=== PATIENT | male | born 1990 | race Two or more races ===

== ENCOUNTER 2020-12-13 21:07 | Emergency (ER) | payer SELFPAY ==
[~2020-12-13] VITALS: Ht 170.2 cm; Wt 77.1 kg
[2020-12-14 01:02] VITALS: BP 120/72
== END 2020-12-14 01:16 | disposition home or self-care (01) ==
LOC: EDBD 21:07 → ER 21:07
DX: S29.012A Strain of muscle and tendon of back wall of thorax, initial encounter (principal); S43.491A Other sprain of right shoulder joint, initial encounter; S53.491A Other sprain of right elbow, initial encounter; M62.838 Other muscle spasm; R51.9 Headache, unspecified; Y08.89XA Assault by other specified means, initial encounter; Y93.89 Activity, other specified; Y92.89 Other specified places as the place of occurrence of the external cause; Y99.8 Other external cause status
CPT/HCPCS: 70450; 70486; 72125; 73030; 73080; 73130; 73562